=== PATIENT | male | born 1965 | race Caucasian/White ===

== ENCOUNTER 2017-11-27 11:03 | Emergency (ER) | payer OTHER ==
[2017-11-27] MEDS ORDERED: HYDROcodone/Acetaminophen 10/325 mg Tablet ONE (12:23)
[2017-11-27] MEDS ORDERED: Naproxen 500 MG TAB ONE (12:23)
--- NOTE | 2017-11-27 13:06 | RAD ---
TWO VIEWS RIGHT HIP: 11/27/2017 PROVIDED CLINICAL HISTORY: Joint pain. COMPARISON: 04/20/2017 FINDINGS: Postoperative changes of right hip arthroplasty are redemonstrated without evidence for hardware comp lication. There is no evidence for fracture or other acute osseous abnormality. The right sacroilia c joint appears unremarkable. IMPRESSION: Status post right hip arthroplasty without evidence for hardware complication. POS: OFF
[2017-11-27] MEDS ORDERED: MORPHINE 10 MG/ML SYRINGE ONE (13:29)
[2017-11-27] MEDS ORDERED: Ondansetron ODT 4 MG TAB ONE (13:29)
== END 2017-11-27 13:53 | disposition home or self-care (01) ==
LOC: MADERS 11:03
DX: M87.9 Osteonecrosis, unspecified (principal); F32.9 Major depressive disorder, single episode, unspecified; F41.9 Anxiety disorder, unspecified; F17.210 Nicotine dependence, cigarettes, uncomplicated; I10 Essential (primary) hypertension; G89.29 Other chronic pain; M54.9 Dorsalgia, unspecified; Z79.899 Other long term (current) drug therapy
CPT/HCPCS: 96372; J2270; Q0162

== ENCOUNTER 2018-01-29 11:08 | Emergency (ER) | payer OTHER ==
[~2018-01-29 11:08] MED LIST: Morphine 10 MG/ML CARPUJECT ONE
--- NOTE | 2018-01-29 12:30 | RAD ---
RADIOGRAPH PELVIS ONE VIEW: Date: 01-29-18 History: 52-year-old male with pelvis pain after fall. FINDINGS: Bilateral metallic acetabular cups and metallic prostheses replacing the femoral heads and necks. No dislocation. Pelvic ring appear to be intact with no evidence of fracture. IMPRESSION: 1. Status post bilateral total hip replacement arthroplasty. 2. No dislocation or fracture identified. POS: OFF
== END 2018-01-29 12:40 | disposition home or self-care (01) ==
LOC: MADERS 11:08
DX: S30.0XXA Contusion of lower back and pelvis, initial encounter (principal); M54.5 Low back pain; F32.9 Major depressive disorder, single episode, unspecified; F41.9 Anxiety disorder, unspecified; F17.210 Nicotine dependence, cigarettes, uncomplicated; I10 Essential (primary) hypertension; M87.9 Osteonecrosis, unspecified; W19.XXXA Unspecified fall, initial encounter; Z79.899 Other long term (current) drug therapy
CPT/HCPCS: 72170; 96372; J2270

== ENCOUNTER 2018-05-27 08:44 | Emergency (ER) | payer OTHER ==
[2018-05-27] MEDS ORDERED: Morphine 10 MG/ML VIAL ONE (09:57)
--- NOTE | 2018-05-27 11:14 | RAD ---
LEFT HIP 2 VIEWS: HISTORY: Hip pain. FINDINGS: Total hip prosthesis is in good position. No loosening or evidence for a fracture. IMPRESSION: No acute findings. POS: [facility]
--- NOTE | 2018-05-27 11:16 | RAD ---
TWO VIEWS OF THE RIGHT HIP: INDICATION: Right hip pain. No real injury. The patient was moving boxes yesterday and felt like he over-did it . COMPARISON: 02/24/18. FINDINGS: There is a right total hip prosthesis that projects in the expected position. There are small phlebo liths in the lower left hemipelvis. There is degenerative disk disease of the lower lumbar spine. IMPRESSION: No acute osseous abnormality. POS: [facility]
== END 2018-05-27 10:16 | disposition home or self-care (01) ==
LOC: MADERS 08:44
DX: M25.551 Pain in right hip (principal); M25.552 Pain in left hip; I10 Essential (primary) hypertension; G89.29 Other chronic pain; G54.9 Nerve root and plexus disorder, unspecified; F41.9 Anxiety disorder, unspecified; F32.9 Major depressive disorder, single episode, unspecified; F17.210 Nicotine dependence, cigarettes, uncomplicated; Z96.643 Presence of artificial hip joint, bilateral; X50.1XXA Overexertion from prolonged static or awkward postures, initial encounter
CPT/HCPCS: 96372; J2270

== ENCOUNTER 2018-07-03 12:20 | Emergency (ER) | payer OTHER ==
[2018-07-03] MEDS ORDERED: Ketorolac Tromethamine 60 MG/2 ML VIAL ONE (12:52)
== END 2018-07-03 13:21 | disposition left against medical advice (07) ==
LOC: MADERS 12:20
DX: M25.552 Pain in left hip (principal); I10 Essential (primary) hypertension; F41.9 Anxiety disorder, unspecified; F32.9 Major depressive disorder, single episode, unspecified; F17.210 Nicotine dependence, cigarettes, uncomplicated; X50.1XXA Overexertion from prolonged static or awkward postures, initial encounter
CPT/HCPCS: 96372; J1885

== ENCOUNTER 2018-09-27 09:46 | Emergency (ER) | payer OTHER ==
[2018-09-27] MEDS ORDERED: Ketorolac Tromethamine 30 MG/ML VIAL ONE (11:25)
[2018-09-27] MEDS ORDERED: predniSONE 20 MG TAB ONE (11:25)
--- NOTE | 2018-09-27 11:57 | RAD ---
PELVIC RADIOGRAPH: Date: 09/27/18 PROVIDED CLINICAL HISTORY: Injury. FINDINGS: Comparison with 02/24/18. Postoperative changes of total hip arthroplasty noted bilaterally. The inferior extents of the femora l components are not visualized. Given this limitation, there is no evidence for hardware loosening o r migration. There is no evidence for fracture or other acute osseous abnormality. If there is persis tent clinical concern, conservative management and follow-up imaging are advised. IMPRESSION: As above. POS: [facility]
--- NOTE | 2018-09-27 12:00 | RAD ---
RIGHT HIP 2 VIEWS: Date: 09/27/18 PROVIDED CLINICAL HISTORY: Right hip pain. FINDINGS: Comparison with 05/27/18. Postoperative changes of right hip arthroplasty are demonstrated, without evidence for hardware compl ication. Alignment appears anatomic. No evidence for fracture or other acute osseous abnormality. IMPRESSION: No evidence for an acute osseous abnormality. If there is persistent clinical concern, conservative m anagement and follow-up imaging are advised. POS: [facility]
== END 2018-09-27 11:50 | disposition home or self-care (01) ==
LOC: MADERS 09:46
DX: M54.31 Sciatica, right side (principal); I10 Essential (primary) hypertension; F41.9 Anxiety disorder, unspecified; F32.9 Major depressive disorder, single episode, unspecified; F17.210 Nicotine dependence, cigarettes, uncomplicated; W01.0XXA Fall on same level from slipping, tripping and stumbling without subsequent striking against object, initial encounter
CPT/HCPCS: 72170; 96372; J1885; J7506

== ENCOUNTER 2019-01-15 13:31 | Emergency (ER) | payer OTHER ==
[2019-01-15] MEDS ORDERED: Ketorolac Tromethamine 60 MG/2 ML VIAL ONE (13:57)
--- NOTE | 2019-01-15 14:25 | RAD ---
Sacrum and coccyx: 3 views INDICATIONS: Fall with injury to tailbone FINDINGS: Sacrum and coccyx appear intact. No definite fracture identified. Tip of coccyx is suboptim ally evaluated and subtle fracture at this location not excluded. SI joints appear symmetric. IMPRESSION: No definite fracture. Distal coccyx suboptimally evaluated.
[2019-01-15] MEDS ORDERED: Acetaminophen 325 MG TAB ONE (14:35)
[2019-01-15] MEDS ORDERED: HYDROcodone/Acetaminophen 10/325 mg Tablet ONE (14:35)
--- NOTE | 2019-01-15 14:38 | RAD ---
AP PELVIS ONE VIEW: HISTORY: Injury from fall with pain. COMPARISON: 09/27/2018 FINDINGS: Bilateral total hip replacements. No acute pelvic fracture. IMPRESSION: Stable pelvis. Bilateral total hip replacement changes. No acute pelvic fracture. POS: [facility]
[2019-01-15] MEDS ORDERED: Cyclobenzaprine 10 MG TAB ONE (14:56)
== END 2019-01-15 15:05 | disposition home or self-care (01) ==
LOC: MADERS 13:31
DX: S39.012A Strain of muscle, fascia and tendon of lower back, initial encounter (principal); S30.0XXA Contusion of lower back and pelvis, initial encounter; I10 Essential (primary) hypertension; F41.9 Anxiety disorder, unspecified; F32.9 Major depressive disorder, single episode, unspecified; F17.210 Nicotine dependence, cigarettes, uncomplicated; Z79.899 Other long term (current) drug therapy; W10.9XXA Fall (on) (from) unspecified stairs and steps, initial encounter
CPT/HCPCS: 72170; 72220; 96372; J1885

== ENCOUNTER 2019-04-23 12:27 | Emergency (ER) | payer OTHER ==
--- NOTE | 2019-04-23 13:02 | RAD ---
Radiograph right knee 4 views: 04/23/2019 HISTORY: 53-year-old male with persistent posttraumatic pain after fall one week ago. COMPARISON: 07/01/2017. 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 It is unchanged. Exact etiology uncertain. No fracture or dislocation. No moderate sized or large joint effusion. Mild degenerative changes at medial compartment. No high-grade DJD. No signific ant interval change. IMPRESSION: 1.) No fracture. 2) osseous lesion of the medial femoral condyle of low biologic activity. Exact etiology uncertain.
== END 2019-04-23 13:26 | disposition home or self-care (01) ==
LOC: MADERS 12:27
DX: S89.91XA Unspecified injury of right lower leg, initial encounter (principal); I10 Essential (primary) hypertension; F41.9 Anxiety disorder, unspecified; F32.9 Major depressive disorder, single episode, unspecified; F17.210 Nicotine dependence, cigarettes, uncomplicated; W01.0XXA Fall on same level from slipping, tripping and stumbling without subsequent striking against object, initial encounter

== ENCOUNTER 2019-05-27 18:47 | Emergency (ER) | payer OTHER ==
[2019-05-27] MEDS ORDERED: Ibuprofen 800 MG TAB ONE (19:06)
[2019-05-27] MEDS ORDERED: Dexamethasone 10 MG/ML VIAL ONE (19:06)
--- NOTE | 2019-05-27 19:20 | RAD ---
EXAM: 4 views of the right knee HISTORY: Knee pain for a few days COMPARISON: 04/23/2019 FINDINGS: No knee effusion is seen. There is no evidence of acute fracture or dislocation. No signifi cant degenerative changes are seen. No soft tissue swelling is present. IMPRESSION: No evidence of acute osseous abnormality.
== END 2019-05-27 19:55 | disposition home or self-care (01) ==
LOC: MADERS 18:47
DX: S83.91XA Sprain of unspecified site of right knee, initial encounter (principal); I10 Essential (primary) hypertension; F32.9 Major depressive disorder, single episode, unspecified; F41.9 Anxiety disorder, unspecified; M87.9 Osteonecrosis, unspecified; F17.210 Nicotine dependence, cigarettes, uncomplicated; Z79.899 Other long term (current) drug therapy; W01.0XXA Fall on same level from slipping, tripping and stumbling without subsequent striking against object, initial encounter
CPT/HCPCS: 99406; J1100